=== PATIENT | female | born 1995 | race Caucasian/White ===

== ENCOUNTER 2019-04-24 10:21 | Inpatient (IN) | payer OTHER ==
[2019-04-24 11:01] LABS: APPEARANCE,URINE SLIGHTLY-CLOUDY; BILIRUBIN,URINE NEGATIVE (NEGATIVE); COLOR,URINE YELLOW; GLUCOSE, URINE NEGATIVE (NEGATIVE); KETONES,URINE NEGATIVE (NEGATIVE); LEUKOCYTE ESTERASE,URINE NEGATIVE (NEGATIVE); NITRITE,URINE POSITIVE (NEGATIVE); PROTEIN,URINE NEGATIVE (NEGATIVE); UROBILINOGEN,URINE NEGATIVE mg/dL (<2.0)
[2019-04-24 11:16] LABS: URINE AMPHETAMINES SCREEN NEGATIVE; URINE BARBITURATES SCREEN NEGATIVE; URINE BENZODIAZEPINES SCREEN NEGATIVE; URINE COCAINE SCREEN NEGATIVE; URINE MARIJUANA (THC) SCREEN NEGATIVE; URINE METHADONE SCREEN NEGATIVE; URINE PHENCYCLIDINE SCREEN NEGATIVE
[2019-04-24] MEDS ORDERED: RINGERS SOLUTION,LACTATED 1,000 ML IV ONE (13:01)
[2019-04-24] MEDS ORDERED: NALOXONE HCL INJ/PF 0.4 MG/1 ML SDV IV PRN (13:04)
[2019-04-24] MEDS ORDERED: MISOPROSTOL 0.2 MG TABLET PR PRN (13:04)
[2019-04-24] MEDS ORDERED: OXYTOCIN 10 UNIT/ML VIAL IM PRN (13:04)
[2019-04-24] MEDS ORDERED: METHYLERGONOVINE MALEATE INJ/PF 0.2 MG/1 ML AMPULE IV PRN (13:04)
[2019-04-24] MEDS ORDERED: OXYTOCIN/NORMAL SALINE 20 UNIT/1,000 ML RTUINJ IV SCH (13:15)
[2019-04-24 13:28] LABS: ABSOLUTE LYMPHOCYTES (AUTO) 1.4 10^3/uL (0.5-4.7); ABSOLUTE MONOCYTES (AUTO) 0.9 10^3/uL (0.1-1.4); ABSOLUTE NEUT (AUTO) 11.7 10^3/uL (1.7-8.2); BASOPHILS % (AUTO) 0.2 % (0-2); EOSINOPHILS % (AUTO) 0.2 % (0-6); HEMATOCRIT 39.9 % (36.0-47.0); HEMOGLOBIN 13.4 g/dL (12.0-15.5); MEAN CORPUSCULAR HEMOGLOBIN 26.6 pg (27.0-33.4); MEAN CORPUSCULAR HGB CONC 33.6 g/dL (32.0-36.0); MEAN CORPUSCULAR VOLUME 79 fl (80-97); MONOCYTES % (AUTO) 6.4 % (3-13); PLATELET COUNT 196 10^3/uL (150-450); RED BLOOD COUNT 5.03 10^6/uL (3.72-5.28); RED CELL DISTRIBUTION WIDTH 16.7 % (11.5-14.0); SEGMENTED NEUTROPHILS % (AUTO) 83.2 % (42-78); TOTAL CELLS COUNTED % (AUTO) 100 %; WHITE BLOOD COUNT 14.1 10^3/uL (4.0-10.5)
[2019-04-24] MEDS: RINGERS SOLUTION,LACTATED 1,000 ML IV PRN ×2 (13:45→18:07)
--- NOTE | 2019-04-24 13:51 | Admission Physical ---
Datetime Report Generated by CPN: 04/24/2019 13:51 CURRENT ADMISSION Chief Complaint: Uterine Contractions Indication for Induction: Postterm Admit Impression : Active Labor; Ruptured Membranes Admit Plan: Admit to Unit ALLERGIES Medication Allergies: No Medication Allergies: No Known Allergies (04/24/2019) Latex: No Latex Allergies OBSTETRICAL HISTORY EDC: 04/14/2019 00:00 : 1 Para: 0 Term: 0 : 0 SAB: 0 IAB: 0 Livin SEE RECORDS Alcohol: No Marijuana : No Cocaine: No Other Illicit Drugs: No Cigarettes: Never Smoker. [id number] (Annotations: Data stored by [facility] on behalf of user) PHYSICAL EXAM General: Normal HEENT: Normal Neurologic: Normal Thyroid: Normal Heart: Normal Lungs: Normal Breast: Deferred Back: Normal Abdomen: Normal Genitourinary Exam: Normal Extremities: Normal DTRs: Normal Pelvic Type: Adequate VAGINAL EXAM Dilatation: 3 Effacement: 80 Station: -1 MEMBRANES Pooling: Positive Membranes: Ruptured FETUS A EGA: 41.3 Monitoring: External US FHR- Baseline: 120 Variability: Moderate 6-25bpm Decelerations: None FHR Category: Category I Presentation: Vertex Admit Comment: admit for labor and srom PLANS FOR LABOR AND DELIVERY Labor and Delivery: None Pain Management: Epidural Feeding Preference: Breast Benefit of Breast Feed Discussed: Yes Circumcision: N/A INFORMED CONSENT Signature: with User ID: [email or web address]
[2019-04-24] MEDS ORDERED: NALBUPHINE HCL INJ 10 MG/1 ML AMPULE INJ ONE (14:00)
[2019-04-24] MEDS ORDERED: PROMETHAZINE HCL INJ 25 MG/1 ML VIAL IV ONE (14:00)
[2019-04-24] MEDS ORDERED: PROMETHAZINE HCL INJ 25 MG/1 ML VIAL ONE ×2 (14:03→14:04)
[2019-04-24] MEDS ORDERED: NALBUPHINE HCL INJ 10 MG/1 ML AMPULE ONE (14:03)
[2019-04-24] MEDS ORDERED: EPHEDRINE SULFATE INJ 50 MG/1 ML AMPULE ONE (16:43)
[2019-04-24] MEDS ORDERED: FENTANYL/BUPIVACAINE/NS/PF 300 MCG/150 ML RTUINJ EPI ONE (16:43)
[2019-04-24] MEDS ORDERED: BUPIVACAINE HCL 0.25 % INJ/PF (2.5 MG/1 ML) 30 ML VIAL ONE (16:43)
[2019-04-24] MEDS ORDERED: MISOPROSTOL 0.2 MG TABLET ONE (16:45)
[2019-04-24] MEDS ORDERED: OXYTOCIN/NORMAL SALINE 20 UNIT/1,000 ML RTUINJ ONE ×2 (16:45→23:03)
[2019-04-24] MEDS ORDERED: EPHEDRINE SULFATE INJ 50 MG/1 ML AMPULE IV PRN (18:23)
[2019-04-24] MEDS ORDERED: BUPIVACAINE HCL 0.25 % INJ/PF (2.5 MG/1 ML) 30 ML VIAL INFIL ONE (18:23)
[2019-04-24] MEDS ORDERED: DIPHENHYDRAMINE HCL 50 MG/ML VIAL IV PRN (18:23)
[2019-04-24] MEDS ORDERED: FENTANYL/BUPIVACAINE/NS/PF 200 MCG/100 ML RTUINJ EPI PRN (18:23)
[2019-04-24] MEDS ORDERED: OXYTOCIN/NORMAL SALINE 20 UNIT/1,000 ML RTUINJ IV PRN ×2 (18:32→23:29)
[2019-04-24] MEDS ORDERED: LIDOCAINE 2% INJ-PF (20 MG/ML) 10 ML AMPUL ONE (21:10)
[2019-04-24] MEDS ORDERED: LIDOCAINE 1% INJ-PF (10 MG/ML) 30 ML SDV ONE (23:03)
[2019-04-24] MEDS ORDERED: IBUPROFEN 800 MG TABLET ONE (23:21)
[2019-04-24] MEDS ORDERED: MAGNESIUM HYDROXIDE SUSP 30 ML UDCUP PO PRN (23:29)
[2019-04-24] MEDS ORDERED: ZOLPIDEM TARTRATE 5 MG TABLET PO PRN (23:29)
[2019-04-24] MEDS ORDERED: DIPH/PERTUSS(ACELL)/TETANUS VAC/PF 0.5 ML SYR (>=10YO) IM PRN (23:29)
[2019-04-24] MEDS ORDERED: ACETAMINOPHEN 650 MG SUPP.RECT PR PRN (23:29)
[2019-04-24] MEDS ORDERED: PROMETHAZINE HCL INJ 25 MG/1 ML VIAL IV PRN (23:29)
[2019-04-24] MEDS ORDERED: NA PHOS,M-B/NA PHOS,DI-BA (ADULT) 133 ML ENEMA PR PRN (23:29)
[2019-04-24] MEDS ORDERED: GLYCERIN/WITCH HAZEL LEAF 1 EACH MED..WIPE TP PRN (23:29)
[2019-04-24] MEDS ORDERED: PSEUDOEPHEDRINE HCL 30 MG TABLET PO PRN (23:29)
[2019-04-24] MEDS ORDERED: BENZOCAINE/MENTHOL AEROSOL SPRAY 56 ML TOP PRN (23:29)
[2019-04-24] MEDS ORDERED: PROMETHAZINE HCL 25 MG SUPP.RECT PR PRN (23:29)
[2019-04-24] MEDS ORDERED: MEASLES,MUMPS&RUBELLA VACC/PF 0.5 ML VIAL SUBCUT PRN (23:29)
[2019-04-24] MEDS ORDERED: PROMETHAZINE HCL 25 MG TABLET PO PRN (23:29)
[2019-04-24] MEDS ORDERED: DIPHENHYDRAMINE HCL 25 MG CAPSULE PO PRN (23:29)
[2019-04-24] MEDS ORDERED: ACETAMINOPHEN WITH CODEINE #3 TABLET PO PRN ×2 (23:29)
[2019-04-24] MEDS ORDERED: DIBUCAINE 1% OINTMENT 56 GM TP PRN (23:29)
[2019-04-25] MEDS ORDERED: FAMOTIDINE 20 MG TABLET PO ONE (00:15)
--- NOTE | 2019-04-25 02:36 | Delivery Summary ---
Del Sum A-C Datetime Report Generated by CPN: 04/25/2019 02:36 DELIVERY PERSONNEL DELIVERY PERSONNEL: [id number] Delivery Doctor:: Francisca Burger MD Anesthesiologist:: Trevno Gannon MD Labor and Delivery Nurse:: valente maciel Glassware Selector:: par Nursery Nurse:: carteramrita Tech/DIRECTOR CARDIAC: Nikki Franklin, ST MATERNAL INFORMATION Delivery Anesthesia: Epidural Medications During Delivery: oxytocin Medications After Delivery: Pitocin Drip 20 Units/1000ml NSS Meds After Delivery Comment: pitocin Estimated Blood Loss (ml): 250 Delivery QBL Comment: 264 Maternal Complications: None LABOR SUMMARY EDC: 04/14/2019 00:00 No. Babies in Womb: 1 Labor Anesthesia: Epidural LABOR INFORMATION Reason for Induction: Not Applicable Onset of Labor: 04/24/2019 12:30 Complete Dilatation: 04/24/2019 22:04 Oxytocin: Augmentation Group B Beta Strep: negative Antibiotics # of Doses: 0 Steroids Given: None Reason Steroids Not Administered: Not Applicable MEMBRANES Membranes Rupture Method: Spontaneous Rupture of Membranes: 04/24/2019 12:00 Length of Rupture (hr): 11.08 Amniotic Fluid Color: Clear Amniotic Fluid Amount: Small Amniotic Fluid Odor: Normal STAGES OF LABOR Stage 1 hr: 9 Stage 1 min: 34 Stage 2 hr: 1 Stage 2 min: 1 Stage 3 hr: 0 Stage 3 min: 5 Total Time in Labor hr: 10 Total Time in Labor min: 40 VAGINAL DELIVERY Episiotomy: None Laceration #1: Perineal Laceration Extension #1: First Degree Laceration #2: Vaginal Laceration Extension #2: N/A Laceration #3: Vaginal Laceration Extension #3: N/A Laceration Repair: Yes Laceration Repair Note: U-shaped vaginal laceration repaired with 3-0 chromic with several interrupted sutures. Bilateral labial lacerations repaired with two 3-0 chromic sutures bringing the edges together. Sponge Count Correct: Vaginal Sweep Performed Sharps Count Correct: Yes BABY A INFORMATION Delivery Date/Time: 04/24/2019 23:05 Method of Delivery: Vaginal Born in Route : No : N/A Forceps: N/A Vacuum Extraction: N/A Shoulder Dystocia : No PRESENTATION/POSITION BABY A Presentation: Cephalic Cephalic Presentation: Vertex Vertex Position: Right Occipital Anterior PLACENTA INFORMATION BABY A Placenta Delivery Time : 04/24/2019 23:10 Placenta Method of Delivery: Spontaneous Placenta Status: Delivered SCORES BABY A Heart Rate 1 min: >100 bpm Resp Effort 1 min: Good Cry Reflex Irritability 1 min: Cough or Sneeze or Pulls Away Muscle Tone 1 min: Active Motion Color 1 min: Blue/Pale Resuscitation Effort 1 min: Tactile Stimulation SCORE 1 MIN: 8 Heart Rate 5 min: >100 bpm Resp Effort 5 min: Good Cry Reflex Irritability 5 min: Cough or Sneeze or Pulls Away Muscle Tone 5 min: Active Motion Color 5 min: Body [place], Extremities Blue Resuscitation Effort 5 min: Tactile Stimulation SCORE 5 MIN: 9 INFANT INFORMATION BABY A Gestational Age at Delivery: 41.0 Gestational Status: Late Term- 41- 41.6 Weeks Outcome : Liveborn Condition : Stable Infant Sex: Female IDENTIFICATION BABY A Infant Verification Date/Time: 04/24/2019 23:44 ID Band Number: [id number] Mother's Name Verified: Yes RN Verifying : valente Maciel RN Additional Verifying Personnel: Ashtyn Mcpherson RN WEIGHT/LENGTH BABY A Birthweight (gm): 3759 Weight (lb): 8 Infant Weight (oz): 5 Infant Length (in): 21.25 Infant Length (cm): 53.98 CORD INFORMATION BABY A No. Cord Vessels: 3 Nuchal Cord : N/A Cord Blood Taken: Yes-For Storage (Mom's Blood type +) ASSESSMENT BABY A Complications: None Physical Findings at Delivery: Within Normal Limits Skin to Skin: Yes Transferred To: Remains with Mother SIGNATURES Signature: with User ID: [email or web address]
[2019-04-25] MEDS: IBUPROFEN 800 MG TABLET PO SCH ×3 (06:47→21:26)
[2019-04-25 06:51] LABS: HEMATOCRIT 33.9 % (36.0-47.0); HEMOGLOBIN 11.4 g/dL (12.0-15.5); MEAN CORPUSCULAR HGB CONC 33.6 g/dL (32.0-36.0); MEAN CORPUSCULAR VOLUME 81 fl (80-97); PLATELET COUNT 180 10^3/uL (150-450); RED BLOOD COUNT 4.21 10^6/uL (3.72-5.28); RED CELL DISTRIBUTION WIDTH 16.8 % (11.5-14.0); WHITE BLOOD COUNT 14.8 10^3/uL (4.0-10.5)
[2019-04-25] MEDS ORDERED: DIPH/PERTUSS(ACELL)/TETANUS VAC/PF 0.5 ML SYR (>=10YO) IM PRN (08:00)
[2019-04-25] MEDS ORDERED: MEASLES,MUMPS&RUBELLA VACC/PF 0.5 ML VIAL SUBCUT PRN (08:00)
[2019-04-25] MEDS ORDERED: ZOLPIDEM TARTRATE 5 MG TABLET PO PRN (08:00)
--- NOTE | 2019-04-25 09:55 | PDOC PROGRESS REPORT ---
Subjective-OB Progress Note for:: 04/25/19 Subjective: Pt doing well, no concerns. She reports light bleeding, reg diet and voiding without difficulty. Physical Exam (OB) Vital Signs: Temp Pulse Resp BP Pulse Ox 97.7 F 70 16 135/77 H 97 04/25/19 08:06 04/25/19 08:06 04/25/19 08:06 04/25/19 08:06 04/25/19 08:06 Intake & Output 04/24/19 04/25/19 04/26/19 06:59 06:59 06:59 Intake Total 546 Balance 546 Weight 101.7 kg - PIH/Pre-Eclampsia DTR's: 1 + Clonus: Negative Headache: Absent Epigastric Pain: No Visual Changes: No - Lochia Lochia Amount: Scant < 10 ml Lochia Color: Rubra/Red - Abdomen Description: Soft, Round Hernia Present: No Fundal Description: Firm, Midline Fundal Height: u/u - u/2 Objective-Diagnostic Laboratory: 04/25/19 06:11 04/24/19 04/24/19 04/24/19 10:35 13:19 13:19 WBC 14.1 H RBC 5.03 Hgb 13.4 Hct 39.9 MCV 79 L MCH 26.6 L MCHC 33.6 RDW 16.7 H Plt Count 196 Seg Neutrophils % 83.2 H Lymphocytes % 10.0 L Monocytes % 6.4 Eosinophils % 0.2 Basophils % 0.2 Absolute Neutrophils 11.7 H Absolute Lymphocytes 1.4 Absolute Monocytes 0.9 Absolute Eosinophils 0.0 Absolute Basophils 0.0 Urine Color YELLOW Urine Appearance SLIGHTLY-CLOUDY Urine pH 6.0 Ur Specific [place] 1.010 Urine Protein NEGATIVE Urine Glucose (UA) NEGATIVE Urine Ketones NEGATIVE Urine Blood MODERATE H Urine Nitrite POSITIVE H Ur Leukocyte Esterase NEGATIVE Blood Type A POSITIVE Antibody Screen NEGATIVE 04/25/19 06:11 WBC 14.8 H RBC 4.21 Hgb 11.4 L Hct 33.9 L MCV 81 MCH 27.0 MCHC 33.6 RDW 16.8 H Plt Count 180 Seg Neutrophils % Lymphocytes % Monocytes % Eosinophils % Basophils % Absolute Neutrophils Absolute Lymphocytes Absolute Monocytes Absolute Eosinophils Absolute Basophils Urine Color Urine Appearance Urine pH Ur Specific [place] Urine Protein Urine Glucose (UA) Urine Ketones Urine Blood Urine Nitrite Ur Leukocyte Esterase Blood Type Antibody Screen Assessment and Plan(PN) - Assessment and Plan (1) Vaginal delivery Is this a current diagnosis for this admission?: Yes - Time Spent with Patient Time with patient: Less than 15 minutes Medications reviewed and adjusted accordingly: Yes - Disposition Anticipated Discharge: Home Within: within 24 hours
[2019-04-25] MEDS: FAMOTIDINE 20 MG TABLET PO SCH ×2 (10:37→21:26)
[2019-04-25] MEDS: FERROUS SULFATE 325 MG TABLET PO SCH ×2 (10:37→17:38)
[2019-04-25] MEDS: PRENATAL VITAMIN W DHA CAPSULE PO SCH (10:37)
[2019-04-25] MEDS: SENNOSIDES/DOCUSATE 8.6-50 MG 1 EACH TABLET PO SCH (10:37)
[2019-04-25] MEDS: DOCUSATE SODIUM 100 MG CAPSULE PO SCH ×2 (10:37→17:38)
[2019-04-26] MEDS: IBUPROFEN 800 MG TABLET PO SCH (05:32)
[2019-04-26] MEDS: SENNOSIDES/DOCUSATE 8.6-50 MG 1 EACH TABLET PO SCH (09:02)
[2019-04-26] MEDS: FAMOTIDINE 20 MG TABLET PO SCH (09:02)
[2019-04-26] MEDS: DOCUSATE SODIUM 100 MG CAPSULE PO SCH (09:02)
[2019-04-26] MEDS: PRENATAL VITAMIN W DHA CAPSULE PO SCH (09:02)
[2019-04-26] MEDS: FERROUS SULFATE 325 MG TABLET PO SCH (09:02)
--- NOTE | 2019-04-26 10:16 | PDOC PROGRESS REPORT ---
Subjective-OB Progress Note for:: 04/26/19 Subjective: Doing well, no c/o, , voiding, eating well Physical Exam (OB) Vital Signs: Temp Pulse Resp BP Pulse Ox 97.8 F 82 18 132/77 H 96 04/25/19 20:37 04/25/19 20:37 04/25/19 20:37 04/25/19 20:37 04/25/19 20:37 Intake & Output 04/25/19 04/26/19 04/27/19 06:59 06:59 06:59 Intake Total 546 350 Balance 546 350 Weight 101.7 kg - PIH/Pre-Eclampsia DTR's: 1 + Clonus: Negative Headache: Absent Epigastric Pain: No Visual Changes: No - Lochia Lochia Amount: Scant < 10 ml Lochia Color: Rubra/Red - Abdomen Description: Soft, Round Hernia Present: No Fundal Description: Firm, Midline Fundal Height: u/u - u/2 Objective-Diagnostic Laboratory: 04/25/19 06:11 Assessment and Plan(PN) - Assessment and Plan (1) Vaginal delivery Is this a current diagnosis for this admission?: Yes - Time Spent with Patient Time with patient: Less than 15 minutes Medications reviewed and adjusted accordingly: Yes - Disposition Anticipated Discharge: Home Within: within 24 hours
--- NOTE | 2019-04-26 10:19 | PDOC DISCHARGE SUMMARY ---
Final Diagnosis Discharge Date: 04/26/19 Discharge Data - Discharge Medication Home Medications: Vitamin [-U Multiple Vitamin Capsule] 1 tab PO DAILY 04/24/19 Vit B Comp/C/Folic/Iron/Vit E [Vitamin B Complex Tablet] 1 tab PO DAILY 04/24/19 Gestational Age: 41 Reason(s) for Admission: Onset of Labor Procedures: NST, Ultrasound Intrapartum Procedure(s): Spontaneous Vaginal Delivery Complication(s): Laceration-Perineal Laceration-Degree: 1st - Data Baby 1 Female Weight: 3.77 kg Home with Mother: Yes Complications: No - Diagnosis Test Laboratory: Temp Pulse Resp BP Pulse Ox 97.8 F 82 18 132/77 H 96 04/25/19 20:37 04/25/19 20:37 04/25/19 20:37 04/25/19 20:37 04/25/19 20:37 04/24/19 04/24/19 04/25/19 10:35 13:19 06:11 RBC 5.03 4.21 Hgb 13.4 11.4 L Hct 39.9 33.9 L Urine Opiates Screen NEGATIVE - Discharge information/Instructions Discharge Activity: Activity As Tolerated, No Lifting Over 10 Pounds, Pelvic Rest Discharge Diet: As Tolerated, Regular Disposition: HOME, SELF-CARE Follow up with: [facility] in: 4, Weeks
[2019-04-26 11:04] VITALS: BP 135/77
== END 2019-04-26 13:15 | disposition home or self-care (01) | DRG 807 ==
LOC: LC 10:21 → LR 13:04 → 2S 04-25 02:25
PROVIDERS: ADMIT Obstetrics & Gynecology; ATTEND Obstetrics & Gynecology
PROC: 10E0XZZ Delivery of Products of Conception, External Approach (ICD-10-PCS; principal; 2019-04-24)
PROC: 0HQ9XZZ Repair Perineum Skin, External Approach (ICD-10-PCS; 2019-04-24)
DX: O48.0 Post-term pregnancy (principal); Z37.0 Single live birth; O70.0 First degree perineal laceration during delivery; Z3A.41 41 weeks gestation of pregnancy
CPT/HCPCS: 36415; 80307; 81005; 84112; 85025; 85027; 86592; 86850; 86900; 86901; J2300; J2550; J2590; J3010; J3490

== ENCOUNTER 2020-04-23 16:18 | Emergency (ER) | payer OTHER ==
--- NOTE | 2020-04-23 18:06 | ER Document Report ---
ED Medical Screen (RME) - General Chief Complaint: Vag Bleeding, +preg <12wks Stated Complaint: VAGINAL BLEEDING,ABDOMINAL PAIN Time Seen by Provider: 04/23/20 17:53 Primary Care Provider: JESUSITA MADRID MD [Primary Care Provider] - Follow up as needed Mode of Arrival: Ambulatory Information source: Patient Notes: 25-year-old female presents to ED for complaint of abdominal cramping and vaginal bleeding since 4 PM. She states she soaked through her clothes with some dark red and bright blood and then has had some bleeding since she got here. She has not soaked any pads. She states she is 2 para 1. She is B+ blood type. She states she has no past medical or surgical history. She does not smoke drink or use drugs. I have greeted and performed a rapid initial assessment of this patient. A comprehensive ED assessment and evaluation of the patient, analysis of test results and completion of medical decision making process will be conducted by an additional ED providers. TRAVEL OUTSIDE OF THE [place] IN LAST 30 DAYS: No - Related Data Allergies/Adverse Reactions: No Known Allergies Allergy (Verified 04/23/20 17:50) Home Medications: denies Past Medical History - Social History Chew tobacco use (# tins/day): No Frequency of alcohol use: None Drug Abuse: None Physical Exam - Vital signs Vitals: Temp Pulse Resp BP Pulse Ox 98.2 F 98 16 139/80 H 99 04/23/20 16:33 04/23/20 16:33 04/23/20 16:33 04/23/20 16:33 04/23/20 16:33 Course - Vital Signs Vital signs: Temp Pulse Resp BP Pulse Ox 98.2 F 98 16 139/80 H 99 04/23/20 16:33 04/23/20 16:33 04/23/20 16:33 04/23/20 16:33 04/23/20 16:33 Doctor's Discharge - Discharge Referrals: JESUSITA MADRID MD [Primary Care Provider] - Follow up as needed
--- NOTE | 2020-04-23 18:23 | ER Document Report ---
ED General - General Chief Complaint: Vag Bleeding, +preg <12wks Stated Complaint: VAGINAL BLEEDING,ABDOMINAL PAIN Time Seen by Provider: 04/23/20 17:53 Primary Care Provider: JESUSITA MADRID MD [ACTIVE STAFF] - Follow up as needed Mode of Arrival: Ambulatory TRAVEL OUTSIDE OF THE [place] IN LAST 30 DAYS: No - HPI Patient complains to provider of: vaginal bleeding Notes: patient presents to the ED complaining of vaginal bleeding while approx 14 weeks has had US at [facility] that showed IUP no previous miscarriages or abortions () no fever or chills mild lower abdominal cramping no back pain denies h/o bleeding problems - Related Data Allergies/Adverse Reactions: No Known Allergies Allergy (Verified 04/23/20 17:50) Home Medications: denies Past Medical History - General Information source: Patient - Social History Smoking Status: Never Smoker Chew tobacco use (# tins/day): No Frequency of alcohol use: None Drug Abuse: None Family History: Reviewed & Not Pertinent Patient has homicidal ideation: No Review of Systems - Review of Systems Constitutional: No symptoms reported EENT: No symptoms reported Cardiovascular: No symptoms reported Respiratory: No symptoms reported Gastrointestinal: Abdominal pain Genitourinary: No symptoms reported Female Genitourinary: Vaginal bleeding Musculoskeletal: No symptoms reported Skin: No symptoms reported Hematologic/Lymphatic: No symptoms reported Neurological/Psychological: No symptoms reported Physical Exam - Vital signs Vitals: Temp Pulse Resp BP Pulse Ox 98.2 F 98 16 139/80 H 99 04/23/20 16:33 04/23/20 16:33 04/23/20 16:33 04/23/20 16:33 04/23/20 16:33 Interpretation: Normal - General General appearance: Appears well, Alert - HEENT Head: Normocephalic, Atraumatic Eyes: Normal Pupils: PERRL - Respiratory Respiratory status: No respiratory distress Chest status: Nontender Breath sounds: Normal Chest palpation: Normal - Cardiovascular Rhythm: Regular Heart sounds: Normal auscultation Murmur: No - Abdominal Inspection: Normal Distension: No distension Bowel sounds: Normal Tenderness: Nontender Organomegaly: No organomegaly - Back Back: Normal, Nontender - Extremities General upper extremity: Normal inspection, Nontender, Normal color, Normal ROM, Normal temperature General lower extremity: Normal inspection, Nontender, Normal color, Normal ROM, Normal temperature, Normal weight bearing. No: Linsey's sign - Neurological Neuro grossly intact: Yes Cognition: Normal Orientation: AAOx4 [place] Coma Scale Eye Opening: Spontaneous Enoch Coma Scale Verbal: Oriented Enoch Coma Scale Motor: Obeys Commands Enoch Coma Scale Total: 15 Speech: Normal Motor strength normal: LUE, RUE, LLE, RLE Sensory: Normal - Psychological Associated symptoms: Normal affect, Normal mood - Skin Skin Temperature: Warm Skin Moisture: Dry Skin Color: Normal Course - Re-evaluation Re-evalutation: 04/23/20 18:34 vaginal bleeding at start of 2nd trimester will check blood type and quant to help with sonogram interpretation 04/23/20 19:51 blood type is A+ based on chart review US w/ viable but possible abruption of placenta discussed findings w/ Dr Dias who recommends having patient follow up in office tomorrow -> no interventions necessary bleeding precautions reviewed w/ pt prior to discharge - Vital Signs Vital signs: Temp Pulse Resp BP Pulse Ox 98.2 F 98 16 139/80 H 99 04/23/20 16:33 04/23/20 16:33 04/23/20 16:33 04/23/20 16:33 04/23/20 16:33 - Laboratory Result Diagrams: 04/23/20 18:35 04/23/20 18:35 Laboratory results interpreted by me: 04/23/20 04/23/20 18:35 18:35 WBC 11.5 H RDW 14.2 H Absolute Neuts (auto) 8.7 H Sodium 136.5 L Creatinine 0.45 L Beta HCG, Quant 73088.00 H - Diagnostic Test Radiology reviewed: Image reviewed, Reports reviewed Discharge - Discharge Clinical Impression: Threatened in second trimester Condition: Stable Disposition: HOME, SELF-CARE Instructions: ([facility]), Threatened Miscarriage ([facility]) Additional Instructions: Call your obgyn tomorrow to be seen - let them know that the ED provider spoke to Dr Dias who was eligibility consultant and wanted you to be seen in the office tomorrow Return to the ED with worsening symptoms or concerns Referrals: JESUSITA MADRID MD [ACTIVE STAFF] - Follow up as needed ZE DIAS MD [ACTIVE STAFF] - Follow up as needed
[2020-04-23 18:48] LABS: ABSOLUTE EOSINOPHILS # (AUTO) 0.1 10^3/uL (0.0-0.6); ABSOLUTE MONOCYTES (AUTO) 0.8 10^3/uL (0.1-1.4); ABSOLUTE NEUT (AUTO) 8.7 10^3/uL (1.7-8.2); BASOPHILS % (AUTO) 0.1 % (0-2); EOSINOPHILS % (AUTO) 0.6 % (0-6); HEMOGLOBIN 13.4 g/dL (12.0-15.5); LYMPHOCYTES % (AUTO) 17.4 % (13-45); MEAN CORPUSCULAR HEMOGLOBIN 27.3 pg (27.0-33.4); MEAN CORPUSCULAR HGB CONC 34.3 g/dL (32.0-36.0); MEAN CORPUSCULAR VOLUME 80 fl (80-97); MONOCYTES % (AUTO) 6.6 % (3-13); PLATELET COUNT 236 10^3/uL (150-450); RED CELL DISTRIBUTION WIDTH 14.2 % (11.5-14.0); SEGMENTED NEUTROPHILS % (AUTO) 75.3 % (42-78); TOTAL CELLS COUNTED % (AUTO) 100 %; WHITE BLOOD COUNT 11.5 10^3/uL (4.0-10.5)
--- NOTE | 2020-04-23 19:01 | RADIOLOGY REPORT (SQ) ---
EXAM DESCRIPTION: U/S OB 14+ TRNABD 1GES W/O DOP IMAGES COMPLETED DATE/TIME: 04/23/2020 6:48 pm REASON FOR STUDY: Cramping and vaginal bleeding since 4 PM COMPARISON: None. TECHNIQUE: Static and Dynamic grayscale imaging performed of gravid uterus using transabdominal appr oach. Additional selected color Doppler and spectral images recorded. All stored on PACS. LIMITATIONS: None. FINDINGS: FETUSES SEEN:1 EGA: 14 weeks 6 days Calculated using BPD,FL,HC,AC documented on images. 1 week greater than expecte d from clinical dates. VITALIY: 10/16/2020 EFW: Not calculated. Grams PERCENTILE: Not calculated. SARMAD: Adequate PLACENTA: Posterior. Appears to represent a complete previa at this time. PRESENTATION: Variable ANATOMY: anatomical survey was not performed. MATERNAL ADNEXA: Maternal ovaries not visualized. CERVICAL LENGTH: 3.6 cm. Closed. OTHER: There appears to be a 6.4 x 3.6 x 2.3 cm fibroid. There is a thin band that appears to the te sted the placenta but does not appear to involve the extremities. IMPRESSION: LIVING INTRAUTERINE . ESTIMATED GESTATIONAL AGE 14 weeks 6 days There is a possible amniotic band. This does not appear to involve the extremities. Possible uterine fibroid. Trimester of : Second trimester - 13 weeks 1 day to 27 weeks 6 days. TECHNICAL DOCUMENTATION: JOB ID: [id number] 2010 [employer]- All Rights Reserved Reading location - IP/workstation name: [email or web address]
[2020-04-23 19:04] LABS: ALBUMIN 4.2 g/dL (3.5-5.0); ALKALINE PHOSPHATASE 77 U/L (38-126); ANION GAP 8 (5-19); ASPARTATE AMINO TRANSFERASE 18 U/L (14-36); BILIRUBIN,TOTAL 0.3 mg/dL (0.2-1.3); BLOOD UREA NITROGEN 8 mg/dL (7-20); CALCIUM 9.5 mg/dL (8.4-10.2); CARBON DIOXIDE 23 mmol/L (22-30); CHLORIDE 106 mmol/L (98-107); GLUCOSE 92 mg/dL (75-110); POTASSIUM 4.1 mmol/L (3.6-5.0); TOTAL PROTEIN 7.5 g/dL (6.3-8.2)
[2020-04-23 20:09] VITALS: BP 124/66
== END 2020-04-23 20:09 | disposition home or self-care (01) ==
LOC: ER 16:18
DX: O20.0 Threatened abortion (principal); O26.892 Other specified pregnancy related conditions, second trimester; R10.30 Lower abdominal pain, unspecified; Z3A.00 Weeks of gestation of pregnancy not specified
CPT/HCPCS: 36415; 76805; 80053; 84702; 85025; 99284